=== PATIENT | female | born 1980 | race American Indian/Alaskan Native ===

== ENCOUNTER 2017-08-25 08:07 | Emergency (ER) | payer MEDICAID ==
[2017-08-25 08:40] LABS: Bacteria,Urine 1+ /HPF (Negative); Bilirubin,Urine NEG (Negative); Blood,Urine NEG (Negative); Color,Urine Yellow (Yellow); Mucus,Urine FEW /HPF; Protein,Urine <15 mg/dL mg/dL (Negative); Urobilinogen,Urine < 2.0 mg/dL (<2.0)
[2017-08-25 08:41] LABS: HCG Qualitative,Urine Negative (Negative)
[2017-08-25 08:43] LABS: Basophils % (Auto) 0.4 % (0.0-1.8); Eosinophils % (Auto) 0.2 % (0.0-4.3); Hematocrit 35.2 % (30.3-42.9); Hemoglobin 11.1 gm/dl (10.1-14.3); Lymphocytes # (Auto) 0.4 K/mm3 (1.2-5.4); Lymphocytes % (Auto) 6.7 % (13.4-35.0); Mean Corpuscular HGB Conc 32 % (30-34); Mean Corpuscular Volume 75 fl (79-97); Monocytes # (Auto) 0.4 K/mm3 (0.0-0.8); Monocytes % (Auto) 5.4 % (0.0-7.3); Platelet Count 421 K/mm3 (140-440); Red Cell Distribution Width 18.5 % (13.2-15.2)
[2017-08-25 08:46] LABS: Mean Corpuscular Hemoglobin 24 pg (28-32)
[2017-08-25 08:57] LABS: Alanine Aminotransferase 17 units/L (7-56); Albumin 4.3 g/dL (3.9-5); BUN/Creatinine Ratio 18; Blood Urea Nitrogen 11 mg/dL (7-17); Hemolysis Index 6
--- NOTE | 2017-08-25 09:18 | Emergency Department Report ---
Vomiting/Diarrhea - HPI Chief Complaint: Nausea/Vomiting/Diarrhea Stated Complaint: V/D/N Time Seen by Provider: 08/25/17 08:27 Duration: 1 Day Severity: moderate Nausea/Vomiting Severity: Mild Diarrhea Severity: Mild Pain Location: Generalized Pain Severity: Mild Symptoms: Yes Watery Diarrhea, Yes Able to Tolerate Fluids, No Bloody diarrhea, No Fever, No Recent Unusual Foods, No Recent Untreated Water, No Recent use of Antibiotics, No Family w/ Similar Symptoms, No Contacts w/ Similar Symptoms, No Rash, No Hematuria, No Recent URI Symptoms Other History: This is a 37-year-old female that is here with nausea and vomiting that started last night. Patient reports eating multiple meals at work yesterday without any issues, she went to [employer] for dinner last night and started to have abdominal cramping and nausea and vomiting shortly after eating dinner. She vomited twice yesterday and had diarrhea this morning. She did take Pepto-Bismol but shortly after taking the medication she vomited yesterday. Currently she is having mild cramping and upper part of stomach with no vomiting. Denies fever, chest pain, shortness of breath, tarry stools, body aches, recent travel, and recent antibiotic use. ED Review of Systems ROS: Stated complaint: V/D/N Other details as noted in HPI Constitutional: denies: chills, fever Respiratory: denies: cough, shortness of breath, wheezing Cardiovascular: denies: chest pain, palpitations Gastrointestinal: abdominal pain (cramping), nausea, vomiting, diarrhea. denies : constipation, hematemesis, melena, hematochezia Neurological: denies: headache, weakness, paresthesias Psychiatric: denies: anxiety, depression ED Past Medical Hx - Past Medical History Previous Medical History?: No - Surgical History Past Surgical History?: No Additional Surgical History: 1999 and 2008. - Social History Smoking Status: Current Every Day Smoker Substance Use Type: None - Medications Home Medications: Home Medications Medication Instructions Recorded Confirmed Last Taken Type Ciprofloxacin HCl [Cipro] 500 mg PO Q12H #6 tab 08/08/13 Unknown Rx Dicyclomine [Bentyl] 10 mg PO TID #15 capsule 08/08/13 Unknown Rx Loperamide [Imodium] 2 mg PO Q2HR PRN #16 capsule 08/08/13 Unknown Rx Metoclopramide HCl [Reglan] 10 mg PO Q6H PRN #12 tablet 08/08/13 Unknown Rx Loperamide HCl [Imodium A-D] 2 mg PO DAILY PRN #15 tablet 08/25/17 Unknown Rx Ondansetron [Zofran Odt] 4 mg PO Q8H PRN #15 tab.rapdis 08/25/17 Unknown Rx Vomiting Diarrhea Exam - Exam General: Vital signs noted. No distress. Alert and acting appropriately. HEENT: Yes Moist Mucous Membranes, No Pharyngeal Erythema, No Pharyngeal Exudates, No Rhinorrhea, No Conjuctival Injection, No Frontal Tenderness, No Maxillary Tenderness Neck: No Adenopathy, No Rigidity Lungs: Yes Clear Lung Sounds, Yes Good Air Exchange, No Wheezes, No Stridor, No Cough, No Nasal Flaring, No Retractions, No Use of Accessory Muscles Heart exam: Regular: Yes, Murmur: No, Tachycardia: No Abdomen: Tenderness: Yes (RUQ & LUQ), Peritoneal Signs: No, Distention: No, Hyperactive Bowel sounds: No Skin exam: Rash: No, Edema: No, Normal turgor: Yes Neurologic: Alert and oriented, no deficits. Musculoskeletal: Unremarkable. ED Course Vital Signs 08/25/17 08:15 Temperature 98.7 F Pulse Rate 90 Respiratory 16 Rate Blood Pressure 148/96 O2 Sat by Pulse 100 Oximetry ED Medical Decision Making - Lab Data Result diagrams: 08/25/17 08:31 08/25/17 08:31 - Radiology Data Radiology results: report reviewed US of abdomen: Essentially negative sonogram of abdomen. - Medical Decision Making This is a 37 y.o. female that presents with vomiting and diarrhea that started last night. Patient is stable and was examined by me. Vitals stable. Obtained CMP, CBC, & UA. All unremarkable. US of abdomen essentially negative sonogram of abdomen. Given zofran odt 8 mg po once in ER. Plan to start indium and zofran for gastritis. Discussed plan with patient and agreed to plan. No further questions noted by the patient. Discharged home in stable condition. Follow up with PCP in 2-3 days. Critical care attestation.: If time is entered above; I have spent that time in minutes in the direct care of this critically ill patient, excluding procedure time. ED Disposition Clinical Impression: Gastroenteritis Disposition: DC-01 TO HOME OR SELFCARE Is pt being admited?: No Does the pt Need Aspirin: No Condition: Stable Instructions: Gastritis (ED), Gastroenteritis (ED) Additional Instructions: Frequent hand washing is important to reduce spread. Prompt disinfection of contaminated surfaces with household chlorine bleach- based hands hanger and washing of soiled clothing and bedding should be advised. If food or water is thought to be contaminated, it should be avoided. Increase fluid intake. Drinks high in sugars such as carbonated soft drinks, fruit juice, and highly sugared liquids should be avoided. Prescriptions: Loperamide HCl [Imodium A-D] 2 mg PO DAILY PRN #15 tablet PRN Reason: Diarrhea Ondansetron [Zofran Odt] 4 mg PO Q8H PRN #15 tab.rapdis PRN Reason: Nausea Referrals: [facility] [Outside] - 3-5 Days [facility] [Outside] - 3-5 Days [facility] [Outside] - 3-5 Days Forms: Work/School Release Form(ED) Time of Disposition: 11:06 Print Language: HUNGARIAN
--- NOTE | 2017-08-25 10:31 | Ultrasound Report ---
Abdominal sonogram: History: Left upper quadrant and right upper quadrant tenderness. Findings: Normal aorta measuring 1.7 cm. Normal liver. No intrahepatic or extrahepatic duct dilatation. Common bile duct diameter 3 mm. Normal gallbladder. Right kidney 10.1 x 3.9 x 5.8 x 1.1 cm. No mass. No hydronephrosis. Left kidney 11.1 x 4.9 x 5.1 cm. Cortical thickness is 1.4 cm. No mass. No hydronephrosis. Normal spleen and pancreas. Impression: Essentially negative sonogram of abdomen.
[2017-08-25] MEDS ORDERED: ZOFRAN ODT PO ONE (11:16)
[2017-08-25 11:31] VITALS: BP 132/78
== END 2017-08-25 11:31 | disposition home or self-care (01) ==
LOC: ED 08:07
DX: K52.9 Noninfective gastroenteritis and colitis, unspecified (principal); F17.200 Nicotine dependence, unspecified, uncomplicated
CPT/HCPCS: 36415; 76700; 80053; 81001; 81025; 85025; Q0162